=== PATIENT | male | born 1975 | race Caucasian/White ===

== ENCOUNTER 2018-11-03 14:24 | Emergency (ER) | payer SELFPAY ==
[~2018-11-03] VITALS: Ht 180.3 cm; Wt 68.0 kg
--- NOTE | 2018-11-03 15:39 | NUR ---
Spoke to Le from [employer] and informed of patient information.
--- NOTE | 2018-11-03 16:00 | Diagnostic Imaging Report ---
Exam: Bilateral hands, 3 views History: .By right first digit, left hand Comparison: None. Findings: Left: No acute, displaced fracture or dislocation. Appropriate alignment between the distal radius, lunate, and capitate is maintained on the lateral radiograph area joint spaces are well-maintained. Soft tissues are unremarkable. No gross soft tissue defect or radiopaque foreign body. Right: Soft tissue laceration along the volar aspect of the second digit, at the level of the distal phalanx, without underlying displaced fracture or cortical destructive change posttraumatic deformity of the fifth metacarpal with persistent mild volar angulation. Joint spaces are well-maintained. Subchondral cyst of the proximal scaphoid. Small metallic foreign body in the volar soft tissues of the hand between the first and second metacarpal. Impression: Soft tissue laceration of the distal aspect of the right second digit without underlying displaced fracture or osseous abnormality. No acute abnormalities of the left hand. Remote fracture deformity of the right fifth metacarpal and small metallic soft tissue foreign body as above. Signed by: Dr. Mohan Huber M.D. on 11/03/2018 3:56 PM
[2018-11-03] MEDS ORDERED: TETANUS/DIPHTHERIA TOX ADULT 0.5 ML SYR IM ONE (16:45)
--- NOTE | 2018-11-03 16:47 | NUR ---
Extensive wound cleansing/irrigation performed to all sites.
[2018-11-03] MEDS ORDERED: AUGMENTIN 875-1 EACH PO (16:59)
[2018-11-03 17:42] VITALS: BP 126/96
== END 2018-11-03 17:58 | disposition home or self-care (01) ==
LOC: ER 14:24
DX: S62.346A Nondisplaced fracture of base of fifth metacarpal bone, right hand, initial encounter for closed fracture (principal); S60.571A Other superficial bite of hand of right hand, initial encounter; S60.470A Other superficial bite of right index finger, initial encounter; S60.572A Other superficial bite of hand of left hand, initial encounter; V19.9XXA Pedal cyclist (driver) (passenger) injured in unspecified traffic accident, initial encounter; Y93.55 Activity, bike riding; Y92.488 Other paved roadways as the place of occurrence of the external cause; W54.0XXA Bitten by dog, initial encounter
CPT/HCPCS: 90471; 90714; 99283

== ENCOUNTER 2025-01-07 15:39 | Emergency (ER) | payer OTHER ==
[~2025-01-07] VITALS: Ht 180.3 cm; Wt 68.0 kg
[~2025-01-07 15:39] MED LIST: AUGMENTIN 875-1 EACH PO
[2025-01-07] MEDS ORDERED: LORAZEPAM INJ 2 MG/ML VIAL IV ONE (16:00)
[2025-01-07 16:10] LABS: BASOPHILS % 0.6 % (0.0-1.0); EOSINOPHILS # (AUTO) 0.2 (0.0-0.4); EOSINOPHILS % 3.4 % (0.0-6.0); HEMATOCRIT 37.9 % (38.2-49.6); HEMOGLOBIN 12.5 g/dL (14.0-18.0); LYMPHOCYTES # (AUTO) 1.4 (1.0-3.2); LYMPHOCYTES % 20.2 % (18.0-39.1); MEAN CORPUSCULAR HEMOGLOBIN 29.7 pg (28-32); MONOCYTES # (AUTO) 0.7 (0.2-0.8); MONOCYTES % 10.7 % (4.4-11.3); NEUTROPHILS # (AUTO) 4.4 (2.1-6.9); NEUTROPHILS % 64.8 % (38.7-80.0); PLATELET COUNT 299 x10e3/uL (140-360); RED BLOOD COUNT 4.21 x10e6/uL (4.3-5.7); WHITE BLOOD COUNT 6.83 x10e3/uL (4.8-10.8)
[2025-01-07] MEDS: SODIUM CHLORIDE 0.9% 1000ML 1,000 ML IV STA (16:22)
[2025-01-07] MEDS: LEVETIRACETAM 1500 MG/100 ML 100 ML IV ONE (16:22)
[2025-01-07 16:26] LABS: INR 0.89; PARTIAL THROMBOPLASTIN TIME 29.6 seconds (23.8-35.5); PROTHROMBIN TIME 12.9 seconds (11.9-14.5)
[2025-01-07 16:33] LABS: ALBUMIN 4.2 g/dL (3.5-5.0); ALBUMIN/GLOBULIN RATIO 1.4 (0.8-2.0); ANION GAP 15.2 mmol/L (8-16); BILIRUBIN,TOTAL 0.4 mg/dL (0.2-1.2); CALCIUM 9.1 mg/dL (8.4-10.2); CREATININE, SERUM 0.89 mg/dL (0.72-1.25); MAGNESIUM 2.3 MG/DL (1.3-2.1); POTASSIUM 4.2 mmol/L (3.5-5.1); TOTAL PROTEIN 7.3 g/dL (6.5-8.1)
[2025-01-07 16:39] LABS: TROPONIN I 0.004 ng/mL (0-0.300)
[2025-01-07] MEDS ORDERED: KEPPRA500 MG PO (18:18)
[2025-01-07 18:30] VITALS: PULSE 53; RESP 16; TEMP 98.2; O2SAT 99
== END 2025-01-07 18:45 | disposition home or self-care (01) ==
LOC: ER 15:58
DX: R42 Dizziness and giddiness (principal); G40.909 Epilepsy, unspecified, not intractable, without status epilepticus; Z91.148 Patient's other noncompliance with medication regimen for other reason; Z87.820 Personal history of traumatic brain injury; F17.210 Nicotine dependence, cigarettes, uncomplicated
CPT/HCPCS: 36415; 70450; 71045; 80053; 80320; 83735; 84484; 85025; 85610; 85730; 93005; 99284; J7030